=== PATIENT | male | born 1955 | race Caucasian/White ===

== ENCOUNTER 2017-07-25 22:32 | Emergency (ER) | payer OTHER ==
[~2017-07-25] VITALS: Ht 182.9 cm; Wt 142.9 kg
--- NOTE | 2017-07-25 22:47 | ED SYNCOPE COMPLAINT ---
History of Present Illness General Chief Complaint: Altered Mental Status Stated Complaint: BIBA AMS Source: patient, family, old records Exam Limitations: no limitations Vital Signs & Intake/Output Vital Signs & Intake/Output Vital Signs Date Time Temp Pulse Resp B/P B/P Pulse O2 O2 Flow FiO2 Mean Ox Delivery Rate 07/26 0044 99.6 68 18 111/63 94 Room Air 07/26 0022 98 Room Air Room Air 07/25 2306 101.8 07/25 2300 96 07/25 2242 101.8 66 20 133/60 93 Room Air ED Intake and Output 07/26 0000 07/25 1200 Intake Total Output Total Balance Patient 315 lb Weight Weight Reported by Patient Measurement Method Allergies Coded Allergies: No Known Allergies (07/25/17) Reconcile Medications Albuterol Sulfate (Proair Hfa) 90 MCG HFA.AER.AD 2 PUF INH Q4-6 PRN PRN DYSPNEA DISPENSE WITH SPACER Cefprozil 500 MG TABLET 1 TAB PO BID URI (Reported) Enalapril Maleate 20 MG TABLET 1 TAB PO DAILY HTN (Reported) Etanercept (Enbrel) (Unknown Strength) SYRINGE (Unknown Dose) SQ ONCE A WEEK PSORIATIC ARTHRITIS (Reported) Guaifenesin/Dextromethorphan (Robitussin Cough-Chest Dm Liq) (Unknown Strength) LIQUID (Unknown Dose) PRN PRN URI (Reported) Meloxicam 15 MG TABLET 1 TAB PO DAILY ARTHRITIS (Reported) Montelukast Sodium 10 MG TABLET 1 TAB PO DAILY URI (Reported) Oseltamivir Phosphate (Tamiflu) 75 MG CAPSULE 1 CAP PO BID INFLUENZA Triage Nurses Notes Reviewed? yes Timing: single episode today Precipitating Factors: RECENT URI SYMPTOMS Episode Description: PER HPI Loss of Consciousness: brief (seconds) Associated Symptoms: FEVER, INCONTINENCE HPI: This is a 61-year-old male who presents to the ER by ambulance from home for chief complaint of not feeling well, syncopal episode while sitting in a chair. According to the patient and his he was sitting watching TV when all of a sudden he stopped responding. They state that they were talking to him and his eyes were open but he wasn't responding. The daughter then noticed that he was incontinent of urine. There able to get him up and he indicated to the bathroom and had an episode of diarrhea. Patient admits to not feeling well for the past 3-4 days with URI symptoms. He was seen by his doctor yesterday started on a cough medicine and antibiotics. Patient with a history of psoriatic arthritis on Enbrel weekly injections. He reports mild fever and chills at home but came into the ER today with a 101.8 fever. Past History Medical History Any Pertinent Medical History? see below for history Cardiovascular: hypertension Other Medical Hx: PSORIATIC ARTHRITIS Surgical History Surgical History: LEFT HIP REPLACEMENT (2011) Psychosocial History What is your primary language Wolof ETOH Use: occasional use Family History Hx Contributory? No Review of Systems Review of Systems Constitutional: Reports: chills, fever, malaise, weakness. EENTM: Reports: no symptoms. Respiratory: Reports: cough, short of breath. Denies: sputum production. Cardiovascular: Denies: chest pain. GI: Denies: abdominal pain, nausea, vomiting. Genitourinary: Reports: no symptoms. Musculoskeletal: Denies: back pain. Skin: Reports: no symptoms. Neurological/Psychological: Reports: no symptoms. All Other Systems: Reviewed and Negative Physical Exam Physical Exam General Appearance: well developed/nourished, alert, awake, mild distress, moderate distress, obese Head: atraumatic, normal appearance Eyes: Bilateral: normal appearance, PERRL, EOMI. Ears, Nose, Throat: normal pharynx, normal ENT inspection, hearing grossly normal Neck: normal inspection, supple, full range of motion Respiratory: normal breath sounds, chest non-tender, no respiratory distress Cardiovascular: regular rate/rhythm Gastrointestinal: normal bowel sounds, soft, non-tender Back: normal inspection, normal range of motion Extremities: normal inspection, normal capillary refill, normal range of motion, no edema Psychiatric: awake, alert, oriented x 3 Cranial Nerves: normal hearing, normal speech, PERRL Motor/Sensory: no motor/sensory deficits Skin: intact, normal color, warm/dry Core Measures ACS in differential dx? Yes CVA/TIA Diagnosis: No Sepsis Present: No Sepsis Focused Exam Completed? Yes ED Sepsis Exam Date of Focused Sepsis Exam: 07/25/17 Time of Focused Sepsis Exam: 2300 Sepsis Cardiac Exam: Regular Rate/Rhythm Sepsis Resp Exam: DIMINISHED BILATERALLY Sepsis Cap Refill Exam: <2 Sec Sepsis Peripheral Pulse Exam: Normal Sepsis Peripheral Pulse Location: Radial Sepsis Skin Color Exam: Pale Skin Temp/Moisture Exam: Warm/Dry Progress Differential Diagnosis: PNEUMONIA, PHARYNGITIS, UPPER RESPIRATORY TRACT INFECTION, ACUTE GASTROENTERITIS, BRONCHITIS Plan of Care: Orders Procedure Date/time Status LACTIC ACID 07/26 0155 Active MONOSPOT 07/25 2330 Complete Add-on Test (ER Only) 07/25 2322 Active RT ED ORDERS 07/25 2255 Active MISTAKE 07/25 2255 Active Telemetry/Supervisor Maintenance 07/25 2255 Active RAPID VIRAL INFLUENZA A 07/25 2255 Complete CULTURE,URINE 07/25 2255 Active BLOOD CULTURE 07/25 2255 Active URINALYSIS 07/25 2255 Active LACTIC ACID 07/25 2255 Complete TROPONIN LEVEL 07/25 2243 Complete COMPREHENSIVE METABOLIC PANEL 07/25 2243 Complete CBC WITHOUT DIFFERENTIAL 07/25 2243 Complete EKG 07/25 2236 Active Laboratory Tests 07/25/17 2352: Anion Gap 12, Estimated GFR > 60, BUN/Creatinine Ratio 22.7, Glucose 109 H, Calcium 8.3 L, Total Bilirubin 0.5, AST 52, ALT 53, Alkaline Phosphatase 59, Troponin I < 0.01, Total Protein 6.8, Albumin 3.9, Globulin 2.9, Albumin/ Globulin Ratio 1.3 07/25/178: Infectious Becker Titer NEGATIVE 07/25/172250: Lactic Acid 1.0, CBC w Diff MAN DIFF ORDERED, RBC 4.43 L, MCV 81.5, MCH 27.5, RDW 13.5, MPV 9.0, Gran % 58.2, Lymphocytes % 18.4 L, Monocytes % 22.2 H, Eosinophils % 0.9, Basophils % 0.3, Absolute Granulocytes 2.3, Segmented Neutrophils 54, Band Neutrophils 7 H, Absolute Lymphocytes 0.7 L, Lymphocytes 15 L, Monocytes 23 H, Absolute Monocytes 0.9 H, Absolute Eosinophils 0, Basophils 1, Absolute Basophils 0, Platelet Estimate VERIFIED BY SMEAR, Normocytic RBCs VERIFIED, Normochromic RBCs VERIFIED, PUBS MCHC 33.7 Microbiology 07/26 0015 BLOOD: Blood Culture - RECD 07/25 2352 BLOOD: Blood Culture - RECD 07/25 2305 NASOPHARYN: Influenza Virus A & B Rapid Smear - COMP INFLUENZA TYPE A 07/25 2255 URINE ROUT: Urine Culture - ORD IV FLUIDS, TYLENOL, SEPSIS WORKUP. FLU SWAB. FLU POSITIVE. TAMIFLU ADMINISTERED. 1:32 am patient feeling much better, ambulatory without distress. negative orthostatics. will go home with . strict return instructions given. Diagnostic Imaging: Viewed by Me: Radiology Read. Discussed w/RAD: Radiology Read. CXR Impression: PATIENT: NADJA BAUTISTA PRESENT AGE: 61 PATIENT ACCOUNT NO: [id number] : 53 LOCATION: [facility] ORDERING PHYSICIAN: Beena Hartman MD SERVICE DATE: 07/25/17 EXAM TYPE: RAD - XRY-PORTABLE CHEST XRAY EXAMINATION: XR PORTABLE CHEST CLINICAL INFORMATION: Fever. COMPARISON: Chest x-ray 01/22/2009 TECHNIQUE: Portable frontal view of the chest was obtained. FINDINGS: Lungs are clear. No pulmonary vascular congestion. There is no pleural effusion. The heart size is normal. The cardiac and mediastinal contours are normal. There are multilevel degenerative changes of dorsal spine. IMPRESSION: Unremarkable examination. DICTATED BY: Mayur Laguerre MD DATE/TIME DICTATED:07/25/172324 DIAMOND SORTER:LOI DATE/TIME TRANSCRIBED:2324 CONFIDENTIAL, DO NOT COPY WITHOUT APPROPRIATE AUTHORIZATION. < Electronically signed in Other Vendor System> SIGNED BY: Mayur Laguerre MD 2328 Initial ED EKG: NSR Departure Departure Time of Disposition: 134 Disposition: HOME OR SELF CARE Condition: Stable Clinical Impression Primary Impression: Influenza A Secondary Impressions: Near syncope Referrals: Neetu HANSEN,Akbar Joy (PCP/Family) Additional Instructions: Drink plenty of fluids, take Tylenol and Motrin as directed. Take the Tamiflu and use inhaler as prescribed. Please follow up with her primary care doctor in the office early next week. Return immediately to the ER for any changing or worsening symptoms. Departure Forms: Customer Survey General Discharge Information Prescriptions: Current Visit Scripts Oseltamivir Phosphate (Tamiflu) 1 CAP PO BID #9 CAP Albuterol Sulfate (Proair Hfa) 2 PUF INH Q4-6 PRN PRN DYSPNEA #1 INHAL DISPENSE WITH SPACER
[2017-07-25] MEDS ORDERED: ENBREL25 MG/0.5 SQ (22:57)
[2017-07-25] MEDS ORDERED: ENALAPRIL MALEA20 M1 PO (22:58)
[2017-07-25] MEDS ORDERED: MONTELUKAST SOD10 M1 PO (22:58)
[2017-07-25] MEDS ORDERED: CEFPROZIL500 MG PO (22:58)
[2017-07-25] MEDS ORDERED: MELOXICAM15 M1 PO (22:58)
[2017-07-25] MEDS ORDERED: ROBITUSSIN COU237 M1 (22:59)
[2017-07-25 23:12] LABS: ABSOLUTE BASOPHIL COUNT 0 /CUMM (0.0-0.2); ABSOLUTE EOSINOPHIL COUNT 0 /CUMM (0.0-0.7); ABSOLUTE GRANULOCYTE CT 2.3 /CUMM (1.4-6.5); ABSOLUTE LYMPH COUNT 0.7 /CUMM (1.2-3.4); ABSOLUTE MONOCYTE COUNT 0.9 /CUMM (0.10-0.60); BASOPHIL % 0.3 % (0.0-2.0); EOSINOPHIL % 0.9 % (0-5); GRANULOCYTE % 58.2 % (42.2-75.2); HEMATOCRIT 36.1 % (42-52); MEAN CORPUSCULAR HGB 27.5 PG (27.0-31.0); MEAN CORPUSCULAR HGB CONC 33.7 G/DL (33.0-37.0); MEAN CORPUSCULAR VOLUME 81.5 FL (80.0-94.0); PLATELET COUNT 169 /CUMM (130-400); RBC DISTRIBUTION WIDTH 13.5 % (11.5-14.5); RED BLOOD CELL CT 4.43 /CUMM (4.70-6.10); WHITE BLOOD CELL COUNT 3.9 /CUMM (4.8-10.8)
--- NOTE | 2017-07-25 23:29 | RADIOLOGY REPORT ---
EXAMINATION: XR PORTABLE CHEST CLINICAL INFORMATION: Fever. COMPARISON: Chest x-ray 01/22/2009 TECHNIQUE: Portable frontal view of the chest was obtained. FINDINGS: Lungs are clear. No pulmonary vascular congestion. There is no pleural effusion. The heart size is normal. The cardiac and mediastinal contours are normal. There are multilevel degenerative changes of dorsal spine. IMPRESSION: Unremarkable examination.
[2017-07-26 00:44] VITALS: BP 111/63
[2017-07-26] MEDS ORDERED: PROAIR HFA8.5 GM INH (01:37)
[2017-07-26] MEDS ORDERED: TAMIFLU75 M1 PO (01:37)
== END 2017-07-26 01:51 ==
LOC: ERH 22:32
PROVIDERS: Emergency Medicine
DX: J10.1 Influenza due to other identified influenza virus with other respiratory manifestations (principal); R55 Syncope and collapse; R19.7 Diarrhea, unspecified; I10 Essential (primary) hypertension
CPT/HCPCS: 1263; 87040; 87086; 87804; 87804-59; 93005; 93010; 96361; 96374; J0131